=== PATIENT | male | born 1965 | race Caucasian/White ===

== ENCOUNTER 2021-03-15 08:24 | Day surgery (SDC) | payer BC ==
--- NOTE | 2021-03-13 09:43 | RAD REPORT ---
EXAM DESCRIPTION: RAD - Chest Pa And Lat (2 Views) - 03/13/2021 9:20 am CLINICAL HISTORY: preop, patient pending soft tissue mass removal COMPARISON: Portable October 2016 TECHNIQUE: Frontal and lateral views of the chest were obtained. FINDINGS: The lungs are slightly underinflated. No acute infiltrates seen. No failure or volume over load. There is a vague 5 mm nodular density superimposed on the posterior right sixth rib. No correlate on the lateral projection. This is probably a summation artifact created by the slightly low lung volume s. A repeat PA chest stone with maximum inspiratory effort could be obtained. CT imaging could be per formed if they nodular density persists. Heart size is normal and central vasculature is within normal limits. No pleural effusion or pneumot horax seen. No acute bony finding noted. No aortic abnormality. IMPRESSION: No acute cardiopulmonary process. Small nodular focus in the upper right lung field is probably summation artifact rather than mass/nod ule. Follow-up PA chest film with maximum inspiratory effort should suffice to clear this finding. Th is could be performed preoperatively or postoperatively. Follow-up CT imaging could be performed if the nodular density persists on the follow-up chest film.
[2021-03-13 10:43] LABS: Absolute Lymphocytes (CBC) 2.4 K/uL (0.7-4.9); Basophils % 0.6 % (0-1.3); Hematocrit 47.4 % (39.6-49.0); Lymphocytes % 22.5 % (15.3-44.8); MPV 7.8 fL (7.6-11.3); RBC Red Blood Cell Count 5.68 M/uL (4.33-5.43)
--- NOTE | 2021-03-13 11:14 | EKG ---
Test Date: 2021-03-13 Test Time: 07:50:16 Splitting Machine Feeder: ARMANDO MEASUREMENT RESULTS: Intervals: Rate: 83 HI: 166 QRSD: 96 QT: 352 QTc: 413 Doland: P: 60 HI: 166 QRS: 42 T: 21 INTERPRETIVE STATEMENTS: Normal sinus rhythm Normal ECG Compared to ECG 11/03/2016 00:57:51 Sinus arrhythmia no longer present Electronically Signed On 03-13-21 11:13:19 CDT by Marcio Rondon
[2021-03-15] MEDS ORDERED: CEFAZOLIN/SWI 1gm 1 GM/10 ML SYR ONE (08:56)
[2021-03-15] MEDS ORDERED: Ringers Lactate 1,000 ML IV ONE (08:56)
[2021-03-15] MEDS ORDERED: CELECOXIB 100 MG CAPSULE ONE (09:15)
[2021-03-15] MEDS ORDERED: ACETAMINOPHEN 500 MG TAB ONE (09:15)
[2021-03-15] MEDS ORDERED: propofoL 200 MG/20 ML VIAL IV ONE (09:41)
[2021-03-15] MEDS ORDERED: ONDANSETRON 4 MG/2 ML VIAL ONE ×2 (09:41→11:45)
[2021-03-15] MEDS ORDERED: FENTANYL CITR 100 MCG/2 ML ONE (09:41)
[2021-03-15] MEDS ORDERED: MIDAZOLAM HCL 2 MG/2 ML INJ ONE (09:41)
[2021-03-15] MEDS ORDERED: dexAMETHasone 10 MG/ML VIAL ONE (09:41)
[2021-03-15] MEDS ORDERED: LIDOCAINE 2% MPF 5 ML VIAL ONE (09:42)
[2021-03-15] MEDS ORDERED: KETOROLAC 30 MG/ML INJ ONE (09:42)
[2021-03-15] MEDS: HYDROMORPHONE HCL 1 MG/ML INJ ONE ×2 (11:13→11:24)
[2021-03-15] MEDS ORDERED: PROMETHAZINE INJ 25 MG/ML AMP ONE (11:35)
--- NOTE | 2021-03-15 11:52 | OP ---
Date of Procedure: 03/15/2021 Surgeon: Shahzad Freitas MD Coffee Urn Attendant: AKILAH Estes. Preoperative Diagnosis: Left leg hematoma. Postoperative Diagnosis: Left leg hematoma, symptomatic. Procedure Performed: Incision and drainage of left leg hematoma via ultrasound guidance. Estimated Blood Loss: Minimal. Specimen: None. Findings: As above. Anesthesia: General. Complications: None. Disposition: The patient tolerated the procedure in stable condition and taken to Recovery in good g eneral condition. Procedure In Detail: The patient was brought to the OR and placed in supine position. General anest hesia begun and the patient was placed in the left lateral position, prepped and draped in the usual sterile fashion. Then, ultrasound guidance had been used prior to the prep to demarcate the exact ar ea where the hematoma was and it was approximately 8 x 4 cm area, approximately 1-2 cm deep to the ti ssue, probably below the fascia. Therefore, a 3 cm incision was made in the middle of the hematoma. Subcutaneous tissues divided and hematoma was evacuated after dissection down through the deep fasci a was done and then wound was irrigated. Large amount of clot was evacuated and then a [place] drain quarter-inch was placed through the entirety of the hematoma cavity, secured with 3-0 nylon and then 3-0 chromic was used to reapproximate the subcutaneous tissue and 4-0 nylon was used to close the sk in. Sterile dressing was applied. The patient was awakened and taken to Recovery in good general co ndition. Discharge Note: The patient will go to Day Surgery and home when stable. Disposition: Home. Condition: Stable. Discharge Instructions: Resume home medications and diet. Activity as tolerated. No heavy lifting. Keep dressing clean and dry. Cover with dressing and may shower in 2 days. Follow up in my office in a week. Call for appointment. Tylenol No.3 one tablet q.4 p.r.n. pain, Keflex 500 mg p.o. q.6. /MODL Voice ID: [id number] Report ID: [id number]
[2021-03-15] MEDS ORDERED: HYDROCODONE/APAP 7.5/325 MG TAB ONE (12:24)
[2021-03-15 13:40] VITALS: BP 167/86; TEMP 96.4; O2SAT 100
== END 2021-03-15 12:40 | disposition home or self-care (01) ==
LOC: OR 08:24
PROVIDERS: ATTEND Surgery
PROC: 0J9P0ZZ Drainage of Left Lower Leg Subcutaneous Tissue and Fascia, Open Approach (ICD-10-PCS; principal; 2021-03-15 10:00)
DX: S80.12XA Contusion of left lower leg, initial encounter (principal); Z20.822 Contact with and (suspected) exposure to COVID-19
CPT/HCPCS: 93005; 85025; 80048; 36415; 71046; 10140; U0003; J2704; J2550; J2250; J3010; J1100; J1170; J0690; J7120; J2405 ×2